=== PATIENT | male | born 1950 | race Caucasian/White ===

== ENCOUNTER 2017-05-03 10:12 | Inpatient (IN) | payer OTHER ==
[~2017-05-03] VITALS: Ht 180.3 cm; Wt 87.6 kg
[2017-05-03 10:54] LABS: BASOPHIL % 0.7 % (0-2); PLATELET COUNT 158 x10^3mcL (130-400); RED CELL DISTRIBUTION WIDTH 13.2 % (11.5-14.5)
[2017-05-03 11:12] LABS: CALCIUM 8.8 mg/dL (8.5-10.1); CARBON DIOXIDE 29.4 mmol/L (21-32); CHLORIDE SERUM 104 mmol/L (98-107); CREATININE SERUM 0.7 mg/dL (0.7-1.3); GFR1 > 60 mL/min; GLUCOSE SERUM 89 mg/dL (74-106); POTASSIUM SERUM 4.2 mmol/L (3.5-5.1); SODIUM SERUM 140 mmol/L (136-145)
[2017-05-03 11:24] LABS: ALBUMIN 3.8 g/dL (3.4-5.0); ALKALINE PHOSPHATASE 63 U/L (46-116); ALT/SGPT 25 U/L (16-63); AMYLASE 37 U/L (25-115); AST/SGOT 16 U/L (15-37); BILIRUBIN TOTAL 0.6 mg/dL (0.20-1.00); CHOLESTEROL 176 mg/dL (<200); LIPASE 93 IU/L (73-393); MAGNESIUM 1.8 mg/dL (1.8-2.4); T4(THYROXINE) 7.1 ug/dL (4.7-13.3); TOTAL PROTEIN, SERUM 7.2 g/dL (6.4-8.2)
[2017-05-03 11:25] LABS: HDL CHOLESTEROL 63 mg/dL (40-60)
[2017-05-03 12:02] LABS: microscopic required? YES; urine erythrocyte TRACE (NEGATIVE)
[2017-05-03 12:03] LABS: AMPHETAMINE QUAL UR NONE DETECTED (NEG <=1000)
[2017-05-03] MEDS ORDERED: ASPIR LOW81 MG PO (12:06)
[2017-05-03 12:39] VITALS: BP 136/78
[2017-05-03 22:26] VITALS: BP 103/61
[2017-05-04 03:11] LABS: BASOPHIL % 0.6 % (0-2); PLATELET COUNT 145 x10^3mcL (130-400); RED CELL DISTRIBUTION WIDTH 13.5 % (11.5-14.5)
[2017-05-04 03:42] LABS: CALCIUM 8.5 mg/dL (8.5-10.1); CARBON DIOXIDE 27.9 mmol/L (21-32); CHLORIDE SERUM 107 mmol/L (98-107); CREATININE SERUM 0.8 mg/dL (0.7-1.3); GFR1 > 60 mL/min; GLUCOSE SERUM 96 mg/dL (74-106); POTASSIUM SERUM 4.1 mmol/L (3.5-5.1); SODIUM SERUM 142 mmol/L (136-145)
[2017-05-04 06:16] VITALS: BP 105/69
[2017-05-04 08:39] VITALS: BP 112/77
[2017-05-04 13:13] VITALS: BP 125/80
[2017-05-04 16:30] VITALS: BP 125/82
[2017-05-04 21:03] VITALS: BP 109/62
[2017-05-05 05:05] VITALS: BP 108/59
[2017-05-05 08:11] VITALS: BP 112/78
[2017-05-05 11:06] VITALS: BP 112/78
== END 2017-05-05 11:41 | disposition home or self-care (01) | DRG 310 ==
LOC: ED 10:12 → DU 11:45
PROVIDERS: Emergency Medicine; ADMIT Family Medicine
DX: I44.1 Atrioventricular block, second degree (principal); R07.89 Other chest pain; R73.03 Prediabetes; E66.3 Overweight; Z68.26 Body mass index [BMI] 26.0-26.9, adult; G90.9 Disorder of the autonomic nervous system, unspecified; I10 Essential (primary) hypertension; D64.9 Anemia, unspecified
CPT/HCPCS: 83880; J7030; Q0092